=== PATIENT | male | born 1980 | race Caucasian/White ===

== ENCOUNTER 2024-03-03 15:39 | Emergency (ER) | payer OTHER ==
[~2024-03-03 15:39] MED LIST: 1/2 NS & 20 mEq KCl 1,000 ML IV ONE; Insulin Human Regular (NovoLIN R) IV ONE; NS 1,000 ML IV ONE; Ondansetron 4 MG/2 ML VIAL IV ONE
== END 2024-03-03 17:30 | disposition short-term general hospital (02) ==
LOC: ED 15:39
DX: E11.10 Type 2 diabetes mellitus with ketoacidosis without coma (principal); R11.2 Nausea with vomiting, unspecified
CPT/HCPCS: J1815; J2405; J3480; J7030